=== PATIENT | female | born 1985 | race Caucasian/White ===

== ENCOUNTER 2020-06-06 10:09 | Emergency (ER) | payer SELFPAY ==
[~2020-06-06] VITALS: Ht 157.5 cm; Wt 82.9 kg
[2020-06-06 10:15] VITALS: BP 136/78
[2020-06-06] MEDS ORDERED: DIPH,PERTUSS(ACELL),TET VAC/PF 0.5 ML SYRINGE. VAX IM ONE (10:45)
[2020-06-06] MEDS ORDERED: AMOX1TAB61 PO (10:50)
--- NOTE | 2020-06-06 10:50 | PHYS DOC ---
General Adult EDM: Chief Complaint: ANIMAL BITE HPI: HPI: 34-year-old female presents with multiple cat bites and scratches. She was attacked by her domestic cat. The cat was apprehensive about another cat that was on the other side of a door. The patient touch the cat and startled it and it jumped onto her left arm and attacked her biting her and scratching her. The animal shots are up-to-date. The patient's tetanus is not up-to-date. Several the wounds were bleeding but have now stopped. The patient denies any other complaints at this time. Review of Systems: Review of Systems: Constitutional: Denies fever or chills Eyes: Denies change in visual acuity HENT: Denies nasal congestion or sore throat Respiratory: Denies cough or shortness of breath Cardiovascular: Denies chest pain or edema GI: Denies abdominal pain, nausea, vomiting, bloody stools or diarrhea : Denies dysuria Musculoskeletal: Denies back pain or joint pain Integument: Puncture wounds and scratches of the left upper extremity Neurologic: Denies headache, focal weakness or sensory changes Endocrine: Denies polyuria or polydipsia Lymphatic: Denies swollen glands Psychiatric: Denies depression or anxiety Current Medications: Current Meds: Current Medications Medications (Trade) Dose Ordered Sig/Ger Start Time Stop Time Status Last Admin Dose Admin Diphtheria/ Pertussis/Tetanus Vacc (ADACEL TDap SYRINGE) 0.5 ml ONCE ONCE 06/06/20 10:45 06/06/20 10:46 Allergies: Allergies: Allergies Coded Allergies Type Severity Reaction Last Updated Verified hydrocodone Allergy Unknown 06/06/20 Yes oxycodone Allergy Unknown 06/06/20 Yes Physical Exam: PE: Constitutional: Well developed, well nourished, no acute distress, non-toxic appearance. [] HENT: Normocephalic, atraumatic, bilateral external ears normal, oropharynx moist, no oral exudates, nose normal. [] Eyes: PERRLA, EOMI, conjunctiva normal, no discharge. [] Neck: Normal range of motion, no tenderness, supple, no stridor. [] Cardiovascular:Heart rate regular rhythm, no murmur [] Lungs & Thorax: Bilateral breath sounds clear to auscultation [] Abdomen: Bowel sounds normal, soft, no tenderness, no masses, no pulsatile masses. [] Skin: Multiple puncture wounds and scratches of the left upper extremity consistent with a cat attack. [] Back: No tenderness, no CVA tenderness. [] Extremities: No tenderness, no cyanosis, no clubbing, ROM intact, no edema. [] Neurologic: Alert and oriented X 3, normal motor function, normal sensory function, no focal deficits noted. [] Psychologic: Affect normal, judgement normal, mood normal. [] EKG: EKG: [] Radiology/Procedures: Radiology/Procedures: [] Heart Score: Risk Factors: Risk Factors: DM, Current or recent (<one month) smoker, HTN, HLP, family history of CAD, obesity. Risk Scores: Score 0 - 3: 2.5% MACE over next 6 weeks - Discharge Home Score 4 - 6: 20.3% MACE over next 6 weeks - Admit for Clinical Observation Score 7 - 10: 72.7% MACE over next 6 weeks - Early Invasive Strategies Course & Med Decision Making: Course & Med Decision Making Pertinent Labs and Imaging studies reviewed. (See chart for details) The patient has multiple wounds from a cat attack. I will cover her with Augmentin. We will also update her tetanus. She is stable for discharge at this time. [] Dragon Disclaimer: Dragon Disclaimer: This electronic medical record was generated, in whole or in part, using a voice recognition dictation system. Departure Departure: Impression: Primary Impression: Cat bite of left forearm Qualified Codes: S51.852A - Open bite of left forearm, initial encounter; W55.01XA - Bitten by cat, initial encounter Additional Impression: Cat bite of left upper arm Qualified Codes: S41.152A - Open bite of left upper arm, initial encounter; W55.01XA - Bitten by cat, initial encounter Disposition: 01 DC HOME SELF CARE/HOMELESS Condition: STABLE Referrals: PCP,NO (PCP) Patient Instructions: Animal Bite, [id number] Scripts Amoxicillin/Potassium Clav (AUGMENTIN [id number] TABLET) 1 Each Tablet 1 TAB PO BID for cat bite for 7 Days, #14 TAB 0 Refills Prov: MARELY ARDON DO 06/06/20 MARELY ARDON DO Jun 06, 2020 10:50
== END 2020-06-06 11:00 | disposition home or self-care (01) ==
LOC: ER 10:09
DX: S41.132A Puncture wound without foreign body of left upper arm, initial encounter (principal); Z88.5 Allergy status to narcotic agent; W55.01XA Bitten by cat, initial encounter; Y93.89 Activity, other specified; Y92.89 Other specified places as the place of occurrence of the external cause; Y99.8 Other external cause status
CPT/HCPCS: 90471; 90715; 99283